=== PATIENT | male | born 1980 | race Two or more races ===

== ENCOUNTER 2024-03-27 17:37 | Inpatient (IN) | payer SELFPAY ==
[~2024-03-27] VITALS: Ht 190.5 cm; Wt 93.4 kg
[2024-03-27 19:10] LABS: Urine Bacteria None Seen /hpf (None Seen)
[2024-03-27 19:50] LABS: Urine Blood 3+ /uL (Negative); Urine Clarity Clear (Clear); Urine Color Yellow (Yellow); Urine Mucus FEW (None Seen); Urine Protein, UAD 1+ (Negative); Urine Specific Gravity 1.039 (1.001-1.035); Urine Urobilinogen Normal (Negative); Urine WBC 2 /hpf (0 - 3); Urine pH 5.5 (5.0-9.0)
[2024-03-27] MEDS: SODIUM CHLORIDE 0.9% 1,000 ML IVB ONE (19:52)
[2024-03-27] MEDS: ONDANSETRON HCL 4 MG/2 ML VIAL IV ONE ×2 (19:53→22:11)
[2024-03-27] MEDS: KETOROLAC TROMETH 30 MG/ML 1ML VIAL IV ONE (19:53)
[2024-03-27 19:54] VITALS: PULSE 70; RESP 16; O2SAT 98
[2024-03-27 20:11] LABS: Basophils # (auto) 0.1 10 ^3/uL (0-0.2); Basophils % (auto) 0.6 % (0.0-2.0); Eosinophils # (auto) 0.2 10 ^3/uL (0-0.8); Eosinophils % (auto) 1.3 % (0.0-7.0); Hematocrit 43.4 % (41.0-53.0); Hemoglobin 14.7 g/dL (13.5-17.5); Lymphocytes # (auto) 2.5 10 ^3/uL (0.4-5.4); Lymphocytes % (auto) 19.6 % (10.0-50.0); Mean Corpuscular Hemoglobin 30.7 pg (28.0-32.0); Mean Corpuscular Hgb Conc. 33.8 g/dL (32.0-36.0); Mean Corpuscular Volume 90.9 fL (80.0-100.0); Monocytes # (auto) 0.5 10 ^3/uL (0-1.3); Monocytes % (auto) 3.9 % (0.0-12.0); Neutrophils # (auto) 9.4 10 ^3/uL (1.6-8.6); Neutrophils % (auto) 74.6 % (37.0-80.0); Nucleated Red Blood Cells % 0.1 %; Platelet Count (auto) 315 10^3/uL (140-450); Red Blood Cells 4.78 10^6/uL (4.5-5.90); White Blood Cell 12.5 10^3/uL (4.4-10.8)
[2024-03-27 20:20] LABS: Chloride 108 mmol/L (98-107); Sodium 139 mmol/L (136-145)
[2024-03-27 20:21] LABS: Anion Gap 5 (5-15); Carbon Dioxide 26 mmol/L (20-31)
[2024-03-27 20:22] LABS: Calcium 9.5 mg/dL (8.7-10.4)
[2024-03-27 20:26] LABS: BUN/Creatinine Ratio 11.9 (10.0-20.0); Blood Urea Nitrogen 17 mg/dL (9-23); Glucose 86 mg/dL (74-106)
[2024-03-27 20:42] LABS: INR 1.03 (0.9-1.15); Partial Thromboplastin Time 27.3 SEC (24.5-34.5); Prothrombin Time 10.9 sec (9.3-11.8)
[2024-03-27] MEDS: HYDROcodone-ACET 10/325MG TAB PO ONE (22:11)
[2024-03-27] MEDS ORDERED: NITROGLYCERIN 0.4 MG SL TAB SL PRN (23:00)
[2024-03-27] MEDS ORDERED: MORPHINE SULFATE INJ 2 MG/ml SYRG IV PRN (23:00)
[2024-03-27] MEDS: SODIUM CHLORIDE 0.9% 1,000 ML IV SCH (23:15)
[2024-03-28] MEDS: TAMSULOSIN HYDROCHLORIDE 0.4 MG CAP PO ONE (00:07)
[2024-03-28] MEDS: ONDANSETRON HCL 4 MG/2 ML VIAL IV PRN (04:32)
[2024-03-28 04:33] LABS: Basophils # (auto) 0.1 10 ^3/uL (0-0.2); Basophils % (auto) 0.7 % (0.0-2.0); Eosinophils # (auto) 0.3 10 ^3/uL (0-0.8); Eosinophils % (auto) 2.1 % (0.0-7.0); Hematocrit 41.4 % (41.0-53.0); Hemoglobin 13.9 g/dL (13.5-17.5); Lymphocytes # (auto) 2.7 10 ^3/uL (0.4-5.4); Lymphocytes % (auto) 22.4 % (10.0-50.0); Mean Corpuscular Hemoglobin 30.2 pg (28.0-32.0); Mean Corpuscular Hgb Conc. 33.5 g/dL (32.0-36.0); Mean Corpuscular Volume 90.4 fL (80.0-100.0); Monocytes # (auto) 0.7 10 ^3/uL (0-1.3); Monocytes % (auto) 5.7 % (0.0-12.0); Neutrophils # (auto) 8.5 10 ^3/uL (1.6-8.6); Neutrophils % (auto) 69.1 % (37.0-80.0); Platelet Count (auto) 278 10^3/uL (140-450); Red Blood Cells 4.58 10^6/uL (4.5-5.90); Red Cell Distribution Width 13.9 % (11.8-14.3); White Blood Cell 12.3 10^3/uL (4.4-10.8)
[2024-03-28] MEDS: MORPHINE SULFATE INJ 2 MG/ml SYRG IV PRN (04:33)
[2024-03-28 04:47] LABS: Alanine Aminotransferase 50 U/L (7-40); Albumin 3.7 g/dL (3.2-4.8); Alkaline Phosphatase 48 U/L (46-116); Anion Gap 3 (5-15); Aspartate Aminotransferase 64 U/L (13-40); BUN/Creatinine Ratio 12.1 (10.0-20.0); Blood Urea Nitrogen 21 mg/dL (9-23); Calcium 8.8 mg/dL (8.7-10.4); Carbon Dioxide 26 mmol/L (20-31); Chloride 112 mmol/L (98-107); Glucose 95 mg/dL (74-106); Potassium 4.2 mmol/L (3.5-5.1); Sodium 141 mmol/L (136-145)
[2024-03-28 04:48] LABS: Bilirubin, Total 0.4 mg/dL (0.2-1.0); Total Protein 5.8 g/dL (5.7-8.2)
[2024-03-28 08:33] VITALS: PULSE 54; RESP 14; O2SAT 96
[2024-03-28 08:44] LABS: Urine Bacteria None Seen /hpf (None Seen)
[2024-03-28 08:55] VITALS: PULSE 57; RESP 18; O2SAT 98
[2024-03-28 09:00] VITALS: BP 128/90; PULSE 57; RESP 17; TEMP 98.1; O2SAT 98
[2024-03-28 09:12] LABS: Urine Blood 2+ /uL (Negative); Urine Clarity Clear (Clear); Urine Color Yellow (Yellow); Urine Mucus FEW (None Seen); Urine Protein, UAD TRACE (Negative); Urine Specific Gravity 1.031 (1.001-1.035); Urine Urobilinogen Normal (Negative); Urine WBC 4 /hpf (0 - 3); Urine pH 5.5 (5.0-9.0)
[2024-03-28 09:19] LABS: Amphetamine Screen, Urine Neg (NEGATIVE)
[2024-03-28 09:20] LABS: Barbiturate Scree,Urine Neg (NEGATIVE)
[2024-03-28 09:21] LABS: Benzodiazephine Screen, Urine Neg (NEGATIVE); Cannabinoid Screen, Urine Pos (NEGATIVE); Cocaine Screen, Urine Neg (NEGATIVE); Opiate Scree,Urine Pos (NEGATIVE); Phencyclidine Screen, Urine Neg (NEGATIVE)
[2024-03-28] MEDS ORDERED: IBUP200C14 PO (10:11)
[2024-03-28] MEDS: cefTRIAXone 1GM/50ML D5W 50 ML IV ONE (12:20)
[2024-03-28 13:16] VITALS: BP 131/81; PULSE 57; RESP 17; TEMP 98.1; O2SAT 99
[2024-03-28] MEDS: IBUPROFEN 400 MG TAB PO PRN (15:04)
[2024-03-28 16:42] VITALS: BP 127/76; PULSE 58; RESP 16; TEMP 98.2; O2SAT 98
[2024-03-28 17:49] VITALS: BP 126/74; PULSE 60; RESP 18
[2024-03-29] MEDS ORDERED: TAMSULOSIN HYDROCHLORIDE 0.4 MG CAP PO SCH (08:00)
[2024-03-29] MEDS ORDERED: cefTRIAXone 1GM/50ML D5W 50 ML IV SCH (09:00)
== END 2024-03-28 18:30 | disposition left against medical advice (07) | DRG 694 ==
LOC: ER 17:44 → OVERFLOW 22:57 → WEST WING 03-28 08:52
PROVIDERS: ADMIT Internal Medicine Geriatric Medicine; ATTEND Emergency Medicine
DX: N13.2 Hydronephrosis with renal and ureteral calculous obstruction (principal); F17.210 Nicotine dependence, cigarettes, uncomplicated; Z53.29 Procedure and treatment not carried out because of patient's decision for other reasons; Z82.3 Family history of stroke
CPT/HCPCS: 36415; 74176; 76775; 80048; 80053; 80307; 81001; 82306; 82607; 83036; 84443; 85025; 85610; 85730; 87086; G0378; J1885; J2405